=== PATIENT | female | born 1980 ===

== ENCOUNTER 2019-11-18 16:11 | Observation (INO) ==
[2019-11-18] MEDS ORDERED: BUPIVACAINE MPF 0.25% 30 ML VIAL ONE (17:29)
[2019-11-18] MEDS ORDERED: LIDOCAINE 1%/EPI INJ 20 ML VIAL ONE (17:29)
[2019-11-18] MEDS ORDERED: ONDANSETRON 4 MG/2 ML VIAL IV PRN ×2 (18:34→18:52)
[2019-11-18] MEDS ORDERED: ACETAMINOPHEN 325 MG TABLET PO PRN (18:34)
[2019-11-18] MEDS ORDERED: MORPHINE 4 MG/1 ML VIAL IV PRN (18:34)
[2019-11-18] MEDS ORDERED: DEXAMETHASONE 4 MG/1 ML VIAL ONE (18:50)
[2019-11-18] MEDS ORDERED: fentaNYL 100 MCG/2 ML VIAL ONE (18:50)
[2019-11-18] MEDS ORDERED: propofoL 200 MG/20 ML VIAL IV ONE (18:50)
[2019-11-18] MEDS ORDERED: MIDAZOLAM 2 MG/2 ML VIAL ONE (18:50)
[2019-11-18] MEDS ORDERED: LIDOCAINE 2% 5 ML VIAL ONE (18:50)
[2019-11-18] MEDS ORDERED: SEVOFLURANE 1 UNIT/15 MINUTE INH ONE (18:50)
[2019-11-18] MEDS ORDERED: NEOSTIGMINE 10 MG/10 ML VIAL ONE (18:51)
[2019-11-18] MEDS ORDERED: ONDANSETRON 4 MG/2 ML VIAL ONE ×2 (18:51→19:09)
[2019-11-18] MEDS ORDERED: GLYCOPYRROLATE 0.4 MG/2 ML VIAL ONE (18:51)
[2019-11-18] MEDS ORDERED: LACTATED RINGERS 1,000 ML IV ONE (18:51)
[2019-11-18] MEDS ORDERED: ROCURONIUM 100 MG/10 ML VIAL IV ONE (18:51)
[2019-11-18] MEDS ORDERED: ESMOLOL 100 MG/10 ML VIAL IV ONE (18:51)
[2019-11-18] MEDS ORDERED: HYDROmorphone 2 MG/1 ML VIAL IV PRN (18:52)
[2019-11-18] MEDS ORDERED: HYDROmorphone 2 MG/1 ML VIAL ONE (19:09)
[2019-11-18] MEDS: PIPERACILLIN/TAZOBACTAM 3,375 MG in SODIUM CHLORIDE 0.9% 100 ML IV SCH (21:25)
[2019-11-19] MEDS: PIPERACILLIN/TAZOBACTAM 3,375 MG in SODIUM CHLORIDE 0.9% 100 ML IV SCH (06:25)
[2019-11-19 07:58] LABS: Basophils % 0.3 % (0.0-0.8); Eosinophils % 0.1 % (0.00-10.9); Hematocrit 38.7 VOL% (35.7-47.0); Hemoglobin 12.5 GM/DL (12.0-16.0); Immature Granulocytes % 0.5 %; Immature Granulocytes Absolute 0.07 #; Lymphocytes # 1.9 10*3/uL (1.4-4.0); Lymphocytes % 11.9 % (21.3-54.2); Mean Corpuscular HGB Conc 32.3 GM/DL (32-36); Mean Corpuscular Volume 94.4 FL (87-102); Mean Platelet Volume 11.6 FL (9.6-12.0); Monocytes % 4.7 % (1.7-12.7); Neutrophils % 82.5 % (38.7-73.9); Platelet Count 261 T/CUMM (130-400); Red Cell Distribution Width 13.8 % (9.3-17.3); White Blood Count 15.5 T/CUMM (4-12)
[2019-11-19] MEDS ORDERED: PANTOPRAZOLE 40 MG TABLET PO SCH (09:00)
[2019-11-19 11:11] VITALS: BP 121/61
== END 2019-11-19 13:10 | disposition home or self-care (01) ==
LOC: N.EDINP 16:11 → N.ED 16:11 → N.3E 17:40
PROVIDERS: ADMIT Surgery; ATTEND Surgery
PROC: LAPCHOL (2019-11-18 17:44)